=== PATIENT | male | born 1960 | race Caucasian/White ===

== ENCOUNTER 2019-09-28 13:42 | Outpatient (RCR) | payer OTHER, SELFPAY ==
[2019-09-28 14:26] LABS: INR 2.1; Prothrombin Time 22.9 Seconds (11.1-14.7)
== END 2019-12-27 23:59 | disposition home or self-care (01) ==
LOC: ANHLAB 13:42
PROVIDERS: PCP Family Medicine; Visit Provider Family Medicine
DX: D68.61 Antiphospholipid syndrome (principal); Z79.01 Long term (current) use of anticoagulants
CPT/HCPCS: 36415; 85610

== ENCOUNTER 2019-10-15 11:31 | Outpatient (CLI) | payer OTHER, SELFPAY ==
[2019-10-15 12:20] LABS: Total Protein Urine Random 14 mg/dL
[2019-10-15 12:28] LABS: Albumin Level 4.3 g/dL (3.5-5.1); Blood Urea Nitrogen 12 mg/dL (9-20); Calcium 8.9 mg/dL (8.4-10.2); Carbon Dioxide 24 mmol/L (22-30); Chloride 100 mmol/L (98-107); Estimated Glomerular Filt Rate > 60; Glucose 106 mg/dL (75-110); Phosphorus 2.2 mg/dL (2.5-4.5); Sodium 135 mmol/L (137-145)
[2019-10-15 12:31] LABS: Erythrocyte Sedimentation Rate 1 mm/hr (0-20)
[2019-10-15 12:38] LABS: Complement C3 95 mg/dL (88-165)
[2019-10-18 12:53] LABS: Complement Total CH50 >60 U/mL (31-60)
[2019-10-22 14:07] LABS: Anti Nuclear Antibody Pattern Nuclear, Speckled
== END 2019-10-15 11:32 | disposition home or self-care (01) ==
LOC: ANHLAB 11:33
PROVIDERS: PCP Family Medicine; Visit Provider Internal Medicine Nephrology
DX: M32.14 Glomerular disease in systemic lupus erythematosus (principal); I10 Essential (primary) hypertension
CPT/HCPCS: 36415; 80069; 82570; 84156; 85652; 86038; 86039; 86160; 86162

== ENCOUNTER 2019-11-22 14:59 | Emergency (ER) | payer OTHER, SELFPAY ==
--- NOTE | ~2019-11-22 | XR_ITS ---
XR elbow LT min 3V 11/22/2019 17:42 INDICATION: Pain in the lateral aspect of the elbow for 1-2 weeks PROCEDURE: 4 views left elbow COMPARISON: No prior studies for comparison. FINDINGS: Fracture, dislocation or subluxation is not identified. There is a supracondylar process wh ich is a normal variant. The soft tissues appear within normal limits. No foreign bodies are identif ied. No significant joint effusion. IMPRESSION: 1: NO ACUTE BONE OR JOINT ABNORMALITY IDENTIFIED. Reviewed, dictated and finalized at location A.
[2019-11-22 15:04] VITALS: BP 144/85; PULSE 69; RESP 16; TEMP 36.6; O2SAT 97
--- NOTE | 2019-11-22 15:15 | ECG_ITS ---
Measurements Intervals [place] Rate: 73 P: -14 AR: 206 QRS: -4 QRSD: 93 T: 38 QT: 370 QTc: 409 Interpretive Statements SINUS RHYTHM ATRIAL AND VENTRICULAR PREMATURE COMPLEXES INCOMPLETE RIGHT BUNDLE BRANCH BLOCK BORDERLINE ECG Electronically Signed On 11-22-2019 16:53:51 CDT by Cayden Olson D.O.
--- NOTE | 2019-11-22 16:56 | ED.EXTPRO ---
HPI - Extremity Problem General Chief complaint: Extremity Injury, Upper Stated complaint: knot on left arm Time Seen by Provider: 11/22/19 16:53 Source: patient Mode of arrival: ambulatory Limitations: no limitations History of Present Illness HPI Narrative: The pt is a 59 y/o male who presents to the ED c/o left elbow pain onset 3 days ago. The pt notes that he drove for 11-12 hours from [place] to [facility]. He states that the pain started off intermittent, but became more constant as time when on, worsening as well. Pt describes the pain as sharp. He states that the pain radiates down the arm. He reports swelling around the left elbow, dots on the elbow, and left hand numbness. Pt notes that he takes Warfarin. MD Complaint: joint paint (Left elbow) Onset (ago): day(s) (3) Pain Consistency: constant (Initially intermittent) Location: left and elbow Quality: sharp Radiation: distal (Down the arm) Associated symptoms: other (Left elbow swelling, left hand numbness, dots on the left elbow) Context: recent travel (Drove 11-12 hours from [place] to [facility]) Related Data Home Medications Medication Instructions Recorded Confirmed cholecalciferol (vitamin D3) 11/22/19 Allergies Allergy/AdvReac Type Severity Reaction Status Date / Time Sulfa (Sulfonamide Allergy Unknown Unknown Verified 11/22/19 17:26 Antibiotics) Review of Systems Review of Systems: All systems reviewed & are unremarkable except as noted in HPI and below Musculoskeletal: Musculoskeletal: Reports arthralgias (Left elbow, sharp, constant now) and Reports joint swelling (Left elbow) Integumentary/Breasts: Skin/Breast: Reports other ( Dots on the left elbow) Neurologic: Reports numbness (Left hand) [facility] Past Medical History Medical History (Updated 11/22/19 @ 18:41 by Bryan Campuzano MD) Antiphospholipid antibody with hypercoagulable state HLD (hyperlipidemia) Hypertension Kidney disease Lupus Stroke 2009 TIA (transient ischemic attack) 2012 Warfarin anticoagulation Surgical History Surgical History (Updated 11/22/19 @ 16:59 by Edgardo Higgins) Surgical history unknown Family History Family History (Updated 09/28/19 @ 11:59 by Karin Costa MA) Other Heart disease Hyperlipidemia Hypertension Social History Social History (Updated 01/17/20 @ 12:00 by DIEGO Walters Smoking status: Never smoker Alcohol intake: current Drinks per week: 6 Substance use: never Comments PCP: Dr. Perez Exam Narrative: Exam Narrative: General appearance: Well-developed, well-nourished Skin: Normal color Head: Normocephalic, nontraumatic Eyes: Clear conjunctiva ENT: Oropharynx normal, ears normal, nose normal Neck: Supple, nontender Chest and respiratory: Airway patent, no respiratory distress, no accessory muscle use Heart: Regular rate/rhythm Abdomen: Soft, nontender, no organomegaly, quiet bowel sounds Vascular: Normal peripheral pulses, normal capillary refill. Musculoskeletal: Normal range of motion, nontender back, localized tenderness at the proximal left forearm laterally, slightly tender, no bruises, slightly swelling, no rash, good range of motion of left elbow, leg pain get worse with left hand flexion and extension. Neurologic: Alert and oriented ?3, MAPPER is normal as tested, no gross motor deficit Course Course Emergency Course: Improving Vital Signs Vital signs: Vital Signs Temperature 36.6 C 11/22/19 15:04 Pulse Rate 69 11/22/19 15:04 Respiratory Rate 16 11/22/19 15:04 Blood Pressure 144/85 H 11/22/19 15:04 Pulse Oximetry 97 11/22/19 15:04 Temperature 36.3 C L 11/22/19 18:32 Pulse Rate
[2019-11-22 17:20] VITALS: BP 123/80; PULSE 63; RESP 18; TEMP 36.4; O2SAT 98
[2019-11-22] MEDS: IBUPROFEN 600 MG TABLET PO (17:55)
[2019-11-22 18:06] LABS: Basophils Absolute Auto 0.1 K/mm3 (0.0-0.1); Basophils Percent Auto 0.9 % (0.2-1.2); Eosinophils Absolute Auto 0.1 K/mm3 (0-0.3); Eosinophils Percent Auto 1.4 % (0-4.4); Hematocrit 46.4 % (42.0-52.0); Hemoglobin 16.2 g/dL (14.0-18.0); Immature Granulocyte Absolute 0.02 K/mm3 (0.00-0.031); Immature Granulocyte Percent A 0.3 % (0-0.5); Lymphocytes Absolute Auto 1.53 K/mm3 (0.9-3.2); Mean Corpuscular HGB Conc 34.9 g/dl (32-36); Mean Corpuscular Hemoglobin 29.1 pg (26-34); Mean Corpuscular Volume 83.5 fl (80-100); Mean Platelet Volume 9.9 fl (7.4-10.4); Monocytes Absolute Auto 0.8 K/mm3 (0.1-0.6); Monocytes Percent Auto 11.9 % (2.6-8.5); Neutrophils Absolute Auto 4.4 K/mm3 (1.3-6.7); Neutrophils Percent Auto 63.5 % (45.5-73.1); Platelet Count Result 189 k/mm3 (150-375); Red Blood Count 5.56 M/mm3 (4.6-6.20); Red Cell Distribution Width 12.9 % (11.5-14.5)
[2019-11-22 18:22] LABS: Alanine Aminotransferase 30 U/L (4-50); Albumin Level 4.2 g/dL (3.5-5.1); Alkaline Phosphatase 55 U/L (38-126); Aspartate Amino Transferase 30 U/L (17-59); Bilirubin,Total 0.6 mg/dL (0.2-1.3); Blood Urea Nitrogen 13 mg/dL (9-20); Calcium 8.8 mg/dL (8.4-10.2); Carbon Dioxide 24 mmol/L (22-30); Chloride 103 mmol/L (98-107); Estimated CRCL calculation 69 ml/min; Estimated Glomerular Filt Rate > 60; Glucose 97 mg/dL (75-110); Potassium 3.9 mmol/L (3.4-5.0); Sodium 135 mmol/L (137-145)
[2019-11-22 18:22] LABS: INR 2.8; Prothrombin Time 28.8 Seconds (11.1-14.7)
[2019-11-22 18:30] LABS: Erythrocyte Sedimentation Rate 1 mm/hr (0-20)
[2019-11-22 18:32] VITALS: BP 122/92; PULSE 58; RESP 12; TEMP 36.3; O2SAT 98
[2019-11-22] MEDS: predniSONE 20 MG TABLET 60 MG PO (18:58)
== END 2019-11-22 18:55 | disposition home or self-care (01) ==
PROVIDERS: Emergency Provider Emergency Medicine; PCP Family Medicine
DX: M65.9 Synovitis and tenosynovitis, unspecified (principal); M77.9 Enthesopathy, unspecified; E78.5 Hyperlipidemia, unspecified; I10 Essential (primary) hypertension; Z86.73 Personal history of transient ischemic attack (TIA), and cerebral infarction without residual deficits; Z79.01 Long term (current) use of anticoagulants; I49.1 Atrial premature depolarization; I49.3 Ventricular premature depolarization; D68.61 Antiphospholipid syndrome
CPT/HCPCS: 36415; 73080; 80053; 85025; 85610; 85652; 93005; 99283; A4565; A9270; J7512

== ENCOUNTER 2020-01-16 10:03 | Outpatient (CLI) | payer OTHER, SELFPAY ==
[2020-01-16 10:45] LABS: Creatinine Urine 147.5 mg/dL; Total Protein Urine Random 14 mg/dL
[2020-01-16 10:48] LABS: Alanine Aminotransferase 27 U/L (4-50); Albumin Level 4.5 g/dL (3.5-5.1); Alkaline Phosphatase 50 U/L (38-126); Aspartate Amino Transferase 33 U/L (17-59); Bilirubin,Total 0.6 mg/dL (0.2-1.3); Blood Urea Nitrogen 11 mg/dL (9-20); Calcium 9.2 mg/dL (8.4-10.2); Carbon Dioxide 25 mmol/L (22-30); Chloride 104 mmol/L (98-107); Estimated Glomerular Filt Rate > 60; Glucose 101 mg/dL (75-110); Phosphorus 3.5 mg/dL (2.5-4.5); Potassium 4.1 mmol/L (3.4-5.0); Sodium 138 mmol/L (137-145)
[2020-01-16 10:49] LABS: INR 3.4; Prothrombin Time 33.9 Seconds (11.1-14.7)
[2020-01-16 10:55] LABS: Complement C3 99 mg/dL (88-165)
[2020-01-16 11:01] LABS: Erythrocyte Sedimentation Rate 1 mm/hr (0-20)
[2020-01-19 20:03] LABS: Complement Total CH50 >60 U/mL (31-60)
[2020-01-20 17:39] LABS: Anti Nuclear Antibody Pattern Nuclear, Speckled
== END 2020-01-16 10:04 | disposition home or self-care (01) ==
PROVIDERS: PCP Family Medicine; Visit Provider Internal Medicine Nephrology
DX: N18.2 Chronic kidney disease, stage 2 (mild) (principal); R80.9 Proteinuria, unspecified; D68.61 Antiphospholipid syndrome; E78.5 Hyperlipidemia, unspecified
CPT/HCPCS: 36415; 80069; 80076; 82570; 84156; 85610; 85652; 86038; 86039; 86160; 86162; 86225

== ENCOUNTER 2020-10-06 10:59 | Outpatient (CLI) | payer OTHER, SELFPAY ==
[2020-10-06 12:19] LABS: Alanine Aminotransferase 40 U/L (4-50); Albumin Level 4.2 g/dL (3.5-5.1); Anion Gap 7 mmol/L (8-16); Blood Urea Nitrogen 12 mg/dL (9-20); Carbon Dioxide 29 mmol/L (22-30); Chloride 100 mmol/L (98-107); Estimated Glomerular Filt Rate > 60; Glucose 119 mg/dL (75-110); Phosphorus 2.6 mg/dL (2.5-4.5); Potassium 4.3 mmol/L (3.4-5.0); Sodium 136 mmol/L (137-145)
[2020-10-06 12:21] LABS: Alanine Aminotransferase 39 U/L (4-50); Albumin Level 4.3 g/dL (3.5-5.1); Alkaline Phosphatase 55 U/L (38-126); Anion Gap 5 mmol/L (8-16); Aspartate Amino Transferase 39 U/L (17-59); Bilirubin,Total 0.5 mg/dL (0.2-1.3); Blood Urea Nitrogen 13 mg/dL (9-20); Calcium 9.2 mg/dL (8.4-10.2); Carbon Dioxide 28 mmol/L (22-30); Chloride 103 mmol/L (98-107); Cholesterol 104 mg/dL (0-200); Estimated Glomerular Filt Rate > 60; Glucose 122 mg/dL (75-110); HDL Direct 35 mg/dL; Potassium 4.3 mmol/L (3.4-5.0); Sodium 136 mmol/L (137-145); Triglycerides 79 mg/dL (<150)
[2020-10-06 12:33] LABS: LDL Cholesterol Direct 48 mg/dL
[2020-10-06 12:45] LABS: Creatinine Urine 219.7 mg/dL; Total Protein Urine Random 25 mg/dL; Ur Ttl Prot Creatinine Ratio 0.11 mg/mg (0-0.20)
[2020-10-06 12:50] LABS: Prostate Specific Antigen 1.4 ng/mL (< OR = 4.0)
== END 2020-10-06 11:00 | disposition home or self-care (01) ==
PROVIDERS: PCP Family Medicine; Referring Provider Internal Medicine Nephrology; Visit Provider Physician Assistant
DX: Z00.00 Encounter for general adult medical examination without abnormal findings (principal); N18.2 Chronic kidney disease, stage 2 (mild); E78.5 Hyperlipidemia, unspecified; Z12.5 Encounter for screening for malignant neoplasm of prostate
CPT/HCPCS: 36415; 80053; 80061; 80069; 82570; 84153; 84156; 84460; G0103

== ENCOUNTER 2020-10-10 11:43 | Outpatient (RCR) | payer OTHER, SELFPAY ==
[2020-10-10 12:34] LABS: INR 2.6; Prothrombin Time 28.6 Seconds (11.1-14.7)
== END 2021-01-08 23:59 | disposition home or self-care (01) ==
LOC: ANHLAB 11:43
PROVIDERS: PCP Family Medicine; Visit Provider Physician Assistant
DX: D68.61 Antiphospholipid syndrome (principal)
CPT/HCPCS: 36415; 85610

== ENCOUNTER 2021-03-09 08:53 | Outpatient (RCR) | payer OTHER, SELFPAY ==
[2021-01-14 14:46] LABS: Prothrombin Time 23.1 Seconds (11.1-14.7)
[2021-03-09 09:12] LABS: INR 2.2; Prothrombin Time 25.2 Seconds (11.1-14.7)
== END 2021-04-14 23:59 | disposition home or self-care (01) ==
LOC: ANHLAB 08:53
PROVIDERS: PCP Family Medicine; Visit Provider Physician Assistant
DX: D68.61 Antiphospholipid syndrome (principal)
CPT/HCPCS: 36415; 85610

== ENCOUNTER 2021-03-10 11:53 | Observation (INO) | payer OTHER, SELFPAY ==
[2021-03-10] VITALS (7 sets, daily range): BP systolic 124–138; BP diastolic 78–96; PULSE 54–67; RESP 14–18; TEMP 36–36.7; O2SAT 96–99; BMI 28.3
--- NOTE | ~2021-03-10 | MR_ITS ---
EXAMINATION: MR brain/brain stem wo/w con DATE: 03/11/2021 10:31 INDICATION: Right hemiparesis. TECHNIQUE: Magnetic resonance imaging (MRI) of the brain and brainstem was performed without and with 19 mL MultiHance intravenous contrast. Sequences included sagittal and axial T1-weighted FSE, axial diffusion-weighted FS EPI, axial T2*-weighted GRE, axial T2-weighted FLAIR Propeller, and axial T2-we ighted Propeller. Postcontrast sequences included axial and coronal T1-weighted FSE. Apparent diffusi on coefficient (ADC) maps were created. COMPARISON: Head CT 03/10/2021 FINDINGS: There are old infarcts in the cerebellum on the right. There is no intracranial hemorrhage, acute infarction, or abnormal intracranial mass lesion. The ventricles are normal in size. The orbit s are normal. The paranasal sinuses are clear. The mastoid air cells are normal. IMPRESSION: 1. Old infarcts in the cerebellum on the right. Reviewed, dictated and finalized at location A.
--- NOTE | ~2021-03-10 | CT_ITS ---
EXAMINATION: CTA brain carotid DATE: 03/10/2021 13:41 INDICATION: Right hemiparesis. TECHNIQUE: Computed tomographic angiography (CTA) of the head was performed without and with 100 mL O mnipaque-350 intravenous contrast. CTA of the neck was performed with intravenous contrast. Automated exposure control and iterative reconstruction technique were employed. The dose-length product was 1 893.63 mGy-cm. Maximum intensity projection and volume rendered 3D-reconstructions were created by josé fagan technologist on a separate workstation. COMPARISON: None. FINDINGS: HEAD CTA: There is no intracranial hemorrhage, acute infarction, or abnormal intracranial mass lesion . The ventricles are normal in size. The paranasal sinuses are clear. The mastoid air cells are melissa l. The orbits are normal. The vertebral arteries are codominant. There is no significant stenosis of basilar artery. Left P1 posterior cerebral artery segment is small, a normal variant. The posterior c ommunicating arteries are normal. There is no significant stenosis of the intracranial internal carot id arteries or anterior or middle cerebral arteries. Anterior communicating artery is normal. No aneu rysm. NECK CTA: There are no pathologically enlarged lymph nodes. There is no significant stenosis of the v ertebral arteries. There is no visible plaque in the proximal internal carotid arteries. There is 0% stenosis of the proximal right internal carotid artery relative to normal distal artery lumen diamete r (NASCET criteria). There is 0% stenosis of the proximal left internal carotid artery relative to no rmal distal artery lumen diameter. There is moderate cervical spondylosis. IMPRESSION: 1. Normal brain. No aneurysm or significant intracranial arterial stenosis. 2. 0% stenosis of the proximal internal carotid arteries relative to normal distal artery lumen diame ters (NASCET criteria). Reviewed, dictated and finalized at location A. IMPRESSION: 1. Normal brain. No aneurysm or significant intracranial arterial stenosis. 2. 0% stenosis of the proximal internal carotid arteries relative to normal [place] artery lumen diameters (NASCET criteria).
--- NOTE | ~2021-03-10 | XR_ITS ---
EXAMINATION: XR chest 1V portable INDICATION: Right-sided weakness TECHNIQUE: Portable AP chest at 1220 hours COMPARISON: None available FINDINGS: The lungs are free of acute opacities. There is no pleural effusion or pneumothorax. The ca rdiomediastinal silhouette is normal. The visualized bones and soft tissues are unremarkable. IMPRESSION: 1. No acute cardiopulmonary abnormality. Reviewed, dictated and finalized at location B.
--- NOTE | 2021-03-10 12:02 | ECG_ITS ---
Measurements Intervals [place] Rate: 56 P: 40 [place]: 182 QRS: -5 QRSD: 89 T: 29 QT: 391 QTc: 379 Interpretive Statements SINUS BRADYCARDIA INCOMPLETE RIGHT BUNDLE BRANCH BLOCK BORDERLINE ECG Electronically Signed On 03-10-2021 13:11:10 CDT by Cayden Olson D.O.
[2021-03-10 12:24] LABS: Basophils Percent Auto 0.5 % (0.2-1.2); Eosinophils Percent Auto 0.5 % (0-4.4); Hematocrit 44.4 % (42.0-52.0); Hemoglobin 15.7 g/dL (14.0-18.0); Immature Granulocyte Absolute 0.01 K/mm3 (0.00-0.031); Immature Granulocyte Percent A 0.1 % (0-0.5); Lymphocytes Absolute Auto 0.76 K/mm3 (0.9-3.2); Lymphocytes Percent Auto 9.1 % (18.3-44.2); Mean Corpuscular HGB Conc 35.4 g/dl (32-36); Mean Corpuscular Hemoglobin 30.4 pg (26-34); Mean Corpuscular Volume 85.9 fl (80-100); Mean Platelet Volume 10.2 fl (7.4-10.4); Monocytes Absolute Auto 0.5 K/mm3 (0.1-0.6); Monocytes Percent Auto 6.3 % (2.6-8.5); Neutrophils Absolute Auto 6.9 K/mm3 (1.3-6.7); Neutrophils Percent Auto 83.5 % (45.5-73.1); Platelet Count Result 225 k/mm3 (150-375); Red Blood Count 5.17 M/mm3 (4.6-6.20); Red Cell Distribution Width 12.8 % (11.5-14.5); White Blood Count 8.3 K/mm3 (4.5-10.0)
--- NOTE | 2021-03-10 12:25 | ED.NEUROSD ---
HPI - Neuro Symptoms/Deficit General Chief Complaint: Neuro Symptoms/Deficit Stated Complaint: neuro symptoms Time Seen by Provider: 03/10/21 12:07 Source: patient Mode of arrival: ambulatory Limitations: no limitations History of Present Illness HPI Narrative: This is a 60 year old male with history of Lupus, CVA , chronic anticoagulation who presents for evaluation of right side weakness. Patient states 3 days ago he notes right side headache. He denies having headache currently but he states this headache is intermittent. He also reports right side of his head, right arm and right leg are numb and tingling. He has also having right arm and right leg weakness that has been present since Tuesday. He reports he was able to walk into ER. He reports he was thinking he was having a TIA so he did not come to hospital on Tuesday. His symptoms persisted so he was seen by his PCP today and referred to ER. He also reports right eye blurred vision. He denies speech difficulty, chest pain or sob. He states he had a stroke years ago in which he had similar symptoms but they resolved. HE states he has a TIA with similar symptoms at least once a year. He takes warfarin. Related Data Home Medications Medication Instructions Recorded Confirmed cholecalciferol (vitamin D3) 11/22/19 07/01/20 hydroxychloroquine 200 mg PO DAILY 03/10/21 03/10/21 pantoprazole 40 mg PO QPM 03/10/21 03/10/21 pravastatin 20 mg PO QPM 03/10/21 03/10/21 spironolactone 50 mg PO QPM 03/10/21 03/10/21 warfarin 4 mg PO QPM 03/10/21 03/10/21 Allergies Allergy/AdvReac Type Severity Reaction Status Date / Time azathioprine Allergy Severe Itching Verified 03/10/21 17:23 Sulfa (Sulfonamide Allergy Unknown Redness of Verified 03/10/21 17:23 Antibiotics) Skin Review of Systems Review of Systems: All systems reviewed & are unremarkable except as noted in HPI and below Constitutional: Constitutional: Denies chills and Denies fever(s) Eyes: Eyes: Reports change in vision Cardiovascular: Cardiovascular: Denies chest pain Respiratory: Respiratory: Denies cough and Denies dyspnea Gastrointestinal: Gastrointestinal: Denies abdominal pain Neurologic: Reports headache(s), Reports focal weakness and Reports numbness PMFSH Past Medical History Medical History Antiphospholipid antibody with hypercoagulable state Colon cancer screening (~2019) cologuard was negative HLD (hyperlipidemia) Hypertension Kidney disease Lupus Lupus nephritis Stroke 2009 TIA (transient ischemic attack) 2012 Warfarin anticoagulation Surgical History Surgical History Surgical history unknown Family History Family History Other Heart disease Hyperlipidemia Hypertension Social History Social History Smoking status: Never smoker Alcohol intake: former Drinks per week: 10 Substance use: former Substance use type: painkillers Other substance usage details: painkillers for chronic arthritis previously Gender identity (if verbalized by the patient): Male Spiritual care concerns: No Exam Const: General: no acute distress and alert Orientation/consciousness: patient oriented x3 HENMT: Head: normocephalic and atraumatic Face and sinus: face symmetric Mouth: Yes Normal oral and palatal mucosa present, Yes lip normal, Yes oropharynx normal and Yes moist mucous membranes Eyes: Pupils: Equal, round and reactive pupils present EOM: EOMs intact bilaterally Resp: Effort & Inspection: normal respiratory effort and no retractions Auscultation: clear to auscultation bilaterally GI: GI Palp: Yes Soft to palpation, No Tenderness to palpation present (GI) and No Guarding due to palpation present (GI) Auscultation: normal bowel sound
[2021-03-10 12:34] LABS: Anion Gap 10 mmol/L (8-16); Blood Urea Nitrogen 13 mg/dL (9-20); Calcium 9.4 mg/dL (8.4-10.2); Carbon Dioxide 22 mmol/L (22-30); Chloride 107 mmol/L (98-107); Estimated CRCL calculation 84 ml/min; Estimated Glomerular Filt Rate > 60; Glucose 110 mg/dL (75-110); Potassium 4.1 mmol/L (3.4-5.0); Sodium 139 mmol/L (137-145)
[2021-03-10 12:47] LABS: Troponin I < 0.012 ng/mL (0.000-0.034)
[2021-03-10 13:10] LABS: INR 2.2; Partial Thromboplastin Time 34.1 SECONDS (22.3-36.8); Prothrombin Time 25.2 Seconds (11.1-14.7)
[2021-03-10] MEDS: ACETAMINOPHEN 325 MG TABLET 650 MG PO (21:21)
[2021-03-10] MEDS: WARFARIN (*PBKC) 4 MG TABLET PO (23:18)
[2021-03-10] MEDS: PANTOPRAZOLE 40 MG TABLET PO (23:18)
[2021-03-10] MEDS: PRAVASTATIN SODIUM 20 MG TABLET PO (23:18)
[2021-03-10] MEDS: SPIRONOLACTONE 50 MG TABLET PO (23:18)
[2021-03-11] VITALS: PULSE 51
[2021-03-11 04:00] VITALS: PULSE 51
[2021-03-11 06:13] LABS: INR 2.1; Prothrombin Time 23.8 Seconds (11.1-14.7)
--- NOTE | 2021-03-11 06:23 | PM.IMHP ---
H&P: HPI History of Present Illness Date/Time: 03/11/21 06:23 Chief Complaint: Right-sided weakness Narrative: 60-year-old male with past medical history of antiphospholipid syndrome, hypertension and GERD who presented to the ER from physician's office due due to right-sided numbness and right-sided weakness since Tuesday. The patient reports that his symptoms usually resolved after 3-4 hours of symptoms so initially was not concerned. When his symptoms persisted he went to his primary care physician's office who recommended they go to the ER as he could not lift his hand or leg from the bed without significant effort. He had decreased casino runner strength. He reported numbness and heaviness of the Right-sided extremities. He has some facial paresthesias without facial deficit or speech deficit. He denies any difficulty swallowing. It was my impression that the patient symptoms had resolved in the ER. Instead he reports that his symptoms had been stable for 3 days. The patient was quite upset as he thought the ER physician had told me that his symptoms had resolved. I told him that I had gotten that information through she the a change of communication in [place]ONALD venous taken. Despite trying this clarification with the patient he was still quite upset. Given that his symptoms were resolved the patient asked if he should even stay for an MRI. I told him it would not hurt to have an MRI to evaluate if he had a through CVA. However we would not change his medical management at this time as he is therapeutic on his Coumadin. Neurology was consulted from the ER. I encouraged the patient to stay for evaluation by PT and OT and MRI. the patient reports that he did have some vision changes in his right eye with some blurred vision but the symptoms have now resolved. Review of Systems Review of Systems: Narrative: 12 systems were reviewed with pertinent positives and negatives per HPI. Except as documented in the HPI, all other systems were reviewed and are negative. [facility] Past Medical History Medical History Antiphospholipid antibody with hypercoagulable state Colon cancer screening (~2019) cologuard was negative HLD (hyperlipidemia) Hypertension Kidney disease Lupus Lupus nephritis Stroke 2008 TIA (transient ischemic attack) 2012 Warfarin anticoagulation Surgical History Surgical History (Updated 03/11/21 @ 08:42 by Hillary Varma DO) No pertinent past surgical history Family History Family History Other Heart disease Hyperlipidemia Hypertension Social History Social History Smoking status: Never smoker Alcohol intake: former Drinks per week: 10 Substance use: former Substance use type: painkillers Other substance usage details: painkillers for chronic arthritis previously Gender identity (if verbalized by the patient): Male Spiritual care concerns: No Meds Home Medications and Allergies Home Medications Medication Instructions Recorded Confirmed Type cholecalciferol (vitamin D3) 11/22/19 07/01/20 History losartan 100 mg tablet 100 mg PO DAILY #30 tablet 09/29/20 03/10/21 Rx prednisone 5 mg tablet 5 mg PO DAILY #30 tablet 09/29/20 03/10/21 Rx hydroxychloroquine 200 mg PO DAILY 03/10/21 03/10/21 History pantoprazole 40 mg PO QPM 03/10/21 03/10/21 History pravastatin 20 mg PO QPM 03/10/21 03/10/21 History spironolactone 50 mg PO QPM 03/10/21 03/10/21 History warfarin 4 mg PO QPM 03/10/21 03/10/21 History Allergies Allergy/AdvReac Type Severity Reaction Status Date / Time azathioprine Allergy Severe Itching Verified 03/10/21 17:23 Sulfa (Sulfonamide Allergy Unknown Redness of Verified 03/10/21 17:23 Antibiotics) Skin Vital Signs Vital Signs - 24 hr 03/10/21 12:00 03/10/21 12:27 03/10/21 12:30 Temperature 98.0 F
[2021-03-11 08:00] VITALS: PULSE 56
[2021-03-11] MEDS: LOSARTAN POTASSIUM 100 MG TABLET PO (08:19)
[2021-03-11] MEDS: HYDROXYCHLOROQUINE SULFATE 200 MG TABLET PO (08:19)
[2021-03-11] MEDS: predniSONE 5 MG TABLET PO (08:19)
[2021-03-11] MEDS: ACETAMINOPHEN 325 MG TABLET 650 MG PO (08:24)
--- NOTE | 2021-03-11 09:37 | PM.IMPN ---
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 His symptoms have now resolved. Will still obtain MRI of brain and brainstem a.m. have PT and OT evaluate the patient for residual deficits. Neurology has been consulted from the ER. The patient is on chronic anticoagulation due to antiphospholipid syndrome. His INR is therapeutic. He reports that his INR has been therapeutic for several years without needing change in Coumadin dosing. Patient has been admitted as observation status. Subjective Date/time seen: 03/11/21 09:37 Patient was seen during the morning rounds today. Patient weakness has almost resolved. Patient feeling much better. No shortness of breath or chest pain. No abdominal pain, no nausea, no vomiting. Able to walk and swallow. Mood stable. Review of Systems Review of Systems: All systems reviewed & are unremarkable except as noted in HPI and below ( the history and physical examination.) Exam Narrative: Exam Narrative: PHYSICAL EXAM: WEIGHT 97.4 kg BMI 28.3 General: no acute distress, well-developed well-nourished HEENT: mucous membranes are moist, no oral pharyngeal erythema, good dentition, pupils are equal and reactive, head is normocephalic atraumatic, no carotid bruits Respiratory: clear to auscultation bilaterally, no increased work of breathing Cardiovascular: mild bradycardia, regular rhythm, 2+ pulses, no murmurs Gastrointestinal: soft, nontender, nondistended, positive bowel sounds Skin: non jaundice, no pallor Musculoskeletal: no clubbing, cyanosis or edema Neurological: alert and oriented, speech is clear, no facial asymmetry, cranial nerves 2-12 grossly intact, 5/5 mail clerk strength bilaterally, no pronator drift of upper or lower extremity, sensation grossly intact 5/5 plantar flexion 5/5 dorsiflexion Psychiatric: appropriate affect, patient is obviously upset, cooperative with exam : deferred Hematologic/lymphatic: no anterior cervical or submandibular lymphadenopathy, no petechiae, no bruising Objective Data Vital Signs Vital Signs: Vital Signs - 24 hr 03/10/21 12:00 03/10/21 12:27 03/10/21 12:30 Temperature 36.7 C Pulse Rate 67 59 L 63 Respiratory Rate 18 16 14 Blood Pressure 138/96 H Pulse Oximetry 98 96 97 03/10/21 12:32 03/10/21 13:00 03/10/21 20:00 Temperature Pulse Rate 67 64 54 L Respiratory Rate 18 17 Blood Pressure 131/82 Pulse Oximetry 98 96 03/10/21 20:55 03/11/21 00:00 03/11/21 04:00 Temperature 36.0 C L Pulse Rate 60 51 L 51 L Respiratory Rate 18 Blood Pressure 124/78 Pulse Oximetry 99 Intake/Output Intake/Output: Intake & Output 03/08/21 03/09/21 03/10/21 03/11/21 23:59 23:59 23:59 23:59 Intake Total 240 Output Total 0 900 Balance 240 -900 Meds/Results Medications: Active Medications Generic Name Dose Route Start Last Admin Trade Name Freq PRN Reason Stop Dose Admin Acetaminophen 650 mg 03/10/21 20:32 03/11/21 08:24 Acetaminophen 325 Mg Tablet PO 650 mg Q6H PRN Administration Mild Pain (1-3) or Fever Hydroxychloroquine Sulfate 200 mg 03/11/21 09:00 03/11/21 08:19 Hydroxychloroquine Sulfate 200 Mg Tablet PO 200 mg DAILY JOSE MANUEL Administration Losartan Potassium 100
[2021-03-11 10:59] VITALS: O2SAT 96
--- NOTE | 2021-03-11 11:39 | WPDNEURCNPN ---
Assessment and Plan Additional Plan Documented case of antiphospholipid antibody syndrome with history of lupus as well and intermittent history of TIA like symptomatology which patient is quite aware, MRI documented old infarct in the right cerebellum and head and neck CTA documented 0% stenosis of the proximal internal carotid arteries relative to normal distantly lumen patient is receiving all the appropriate medication will be continued as such and INR has been documented as 2.1 the [place] of therapeutic range. The pros and cons were discussed with the patient he can be discharged and follow up with a physician on a regular basis Consult date: 03/11/21 Time Seen: 11:15 HPI: Mikal Saez is a 60 year old maleHas [facility] through [facility] room for the complaints of right-sided weakness. In addition to the history of underlying 1. Antiphospholipid syndrome diagnosed about 12 years ago for which he is on anticoagulation therapy2 [id number]. As per the information available he presented to emergency room from the physician's office due to right-sided numbness and the right-sided weakness since Tuesday he reported that usually his symptomatology resolved after 3 to 4 hours so initially she he was not concerned when the symptoms persisted for longer duration he called his primary care physician who recommended him to go to the emergency room at that time he was unable to lift his hand or leg from the bed without significant effort and also had decreased instructor physical strength he complained of numbness and heaviness with right-sided upper and lower extremities facial paresthesia without any obvious facial deficit or speech deficit and also no difficulties in swallowing patient had been on anticoagulation therapy MRI was recommended. The past history is consistent with as mentioned above antiphospholipid antibody with hypercoagulable state syndrome in addition to hyperlipidemia hypertension lupus with lupus nephritis and history of stroke in 2008 for which he is on anticoagulation therapy on a regular basis he does have a history of renal disease as well, he is a former alcohol drinker 10 drinks per week but not substance user at this time and he has never a smoker Review of Systems Review of Systems: All systems reviewed & are unremarkable except as noted in HPI and below [facility] Past Medical History Medical History Antiphospholipid antibody with hypercoagulable state Colon cancer screening (~2019) cologuard was negative HLD (hyperlipidemia) Hypertension Kidney disease Lupus Lupus nephritis Stroke 2008 TIA (transient ischemic attack) 2011 Warfarin anticoagulation Surgical History Surgical History No pertinent past surgical history Family History Family History Other Heart disease Hyperlipidemia Hypertension Social History Social History Smoking status: Never smoker Alcohol intake: former Drinks per week: 10 Substance use: former Substance use type: painkillers Other substance usage details: painkillers for chronic arthritis previously Gender identity (if verbalized by the patient): Male Spiritual care concerns: No Meds Home Medications and Allergies Home Medications Medication Instructions Recorded Confirmed Type cholecalciferol (vitamin D3) 11/22/19 07/01/20 History losartan 100 mg tablet 100 mg PO DAILY #30 tablet 09/29/20 03/10/21 Rx prednisone 5 mg tablet 5 mg PO DAILY #30 tablet 09/29/20 03/10/21 Rx hydroxychloroquine 200 mg PO DAILY 03/10/21 03/10/21 History pantoprazole 40 mg PO QPM 03/10/21 03/10/21 History pravastatin 20 mg PO QPM 03/10/21 03/10/21 History spironolactone 50 mg PO QPM 03/10/21 03/10/21 History warfarin 4 mg PO QPM 03/10/21 03/10/21 Histo
[2021-03-11 12:00] VITALS: PULSE 59
--- NOTE | 2021-03-11 13:53 | PM.DS ---
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 Patient will complains stay in the hospital was negative. Pain neurology saw the patient recommended to continue medical management. Patient physical examination was completely normal present time. Will discharge the patient home follow-up scheduled outpatient neurology and primary care physician. Status at Discharge Cognitive/behavioral status at discharge: stable Functional status at discharge: independent ambulation Overall status at discharge: patient is back to baseline Time Spent with Patient Time attestation: Total time spent providing and/or coordinating discharge services: Time spent: Less than 30 minutes Exam Narrative: Exam Narrative: PHYSICAL EXAM: WEIGHT 97.4 kg BMI 28.3 General: no acute distress, well-developed well-nourished HEENT: mucous membranes are moist, no oral pharyngeal erythema, good dentition, pupils are equal and reactive, head is normocephalic atraumatic, no carotid bruits Respiratory: clear to auscultation bilaterally, no increased work of breathing Cardiovascular: mild bradycardia, regular rhythm, 2+ pulses, no murmurs Gastrointestinal: soft, nontender, nondistended, positive bowel sounds Skin: non jaundice, no pallor Musculoskeletal: no clubbing, cyanosis or edema Neurological: alert and oriented, speech is clear, no facial asymmetry, cranial nerves 2-12 grossly intact, 5/5 land degradation analyst strength bilaterally, no pronator drift of upper or lower extremity, sensation grossly intact 5/5 plantar flexion 5/5 dorsiflexion Psychiatric: appropriate affect, patient is obviously upset, cooperative with exam : deferred Hematologic/lymphatic: no anterior cervical or submandibular lymphadenopathy, no petechiae, no bruising DS: Data Data Completed and Pending Labs on day of discharge: Labs from last 24 hours 03/11/21 05:51 PT 23.8 H INR 2.1 Discharge Plan Discharge Attending physician on discharge: Ramos Markham Consulting providers: Jasvir Ramsey Discharging Clinician: Ramos Markham Patient Disposition: Home, Self-Care Activity: as tolerated Diet: heart healthy Patient Instructions: Antibiotic Form Stand Alone Forms: General Discharge Information Follow-up/Referrals: Demetra Perez MD [Primary Care Provider] - Jasvir Ramsey MD [Physician] - Discharge Medications: Continued losartan 100 mg tablet 100 mg PO DAILY Qty: 30 RF: 5 prednisone 5 mg tablet 5 mg PO DAILY Qty: 30 RF: 6 cholecalciferol (vitamin D3) RF: 0 hydroxychloroquine 200 mg tablet 200 mg PO DAILY RF: 0 warfarin 4 mg tablet 4 mg PO QPM RF: 0 pantoprazole 40 mg tablet,delayed release (DR/EC) 40 mg PO QPM RF: 0 pravastatin 20 mg tablet 20 mg PO QPM RF: 0 spironolactone 50 mg tablet 50 mg PO QPM RF: 0 Date of admission: 03/10/21 14:17 Primary Care Provider: Demetra Perez Admitting Provider: Magen Read Attending physician on admission: Magen Read Condition: Stable Quality VTE Prophylaxis VTE prophylaxis: pharmacologic ordered (on coumadin. INR threrap
== END 2021-03-11 15:00 | disposition home or self-care (01) ==
LOC: ANHED 12:37 → ANH3MED 20:20
PROVIDERS: Internal Medicine; Admitting Provider Internal Medicine; Emergency Provider General Practice; PCP Family Medicine; Visit Provider Internal Medicine
DX: G81.91 Hemiplegia, unspecified affecting right dominant side (principal); D68.61 Antiphospholipid syndrome; I10 Essential (primary) hypertension; K21.9 Gastro-esophageal reflux disease without esophagitis; Z79.01 Long term (current) use of anticoagulants; Z86.73 Personal history of transient ischemic attack (TIA), and cerebral infarction without residual deficits
CPT/HCPCS: 36415; 70496; 70498; 70553; 71045; 80048; 84484; 85025; 85610; 85730; 93005; 99285; A9270; A9577; G0378; J7512; Q9967

== ENCOUNTER 2021-04-01 13:41 | Outpatient (CLI) | payer OTHER, SELFPAY ==
--- NOTE | 2021-04-01 14:02 | ECHO_ITS ---
Patient Info Name: Mikal Saez Age: 60 years : 1960 Gender: Male Ht: 72 in Wt: 185 lbs BSA: 2.07 m2 HR: 61 bpm BP: 132 / 74 mmHg Technical Quality: Good Exam Date: 04/01/2021 2:09 PM Exam Location: [facility] Patient Status: Outpatient Admit Date: 04/01/2021 Staff Ordering Physician: Demetra Perez MD Railroad Switchman: Vee Maynard RDCS Attending Provider: Demetra Perez MD Referring Physician: Chris SKY; Exam Type: CA echo doppler color flow Study Info Indications - cerebral infarction Complete two-dimensional, color flow and Doppler transthoracic echocardiogram is performed. Summary 1. Complete two-dimensional, color flow and Doppler transthoracic echocardiogram is performed. 2. Left ventricular chamber dimension is normal. 3. Left ventricular systolic function is normal, estimated at 60-65%. 4. There is mildly increased left ventricular wall thickness. 5. The left ventricular diastolic function is grade I diastolic dysfunction. 6. E/e' 5 is not elevated. 7. There is trace tricuspid valve regurgitation. 8. No pulmonary hypertension, estimated pulmonary arterial systolic pressure is 25 mmHg. Left Ventricle E/e' 5 is not elevated. Left ventricular chamber dimension is normal. Left ventricular systolic function is normal, estimated at 60-65%. There is mildly increased left ventricular wall thickness. The left ventricular diastolic function is grade I diastolic dysfunction. Right Ventricle Right ventricular chamber dimension is normal. Right ventricular systolic function is normal. Left Atria Left atrial chamber dimension is normal. Right Atria Right atrial chamber dimension is normal. Aortic Valve The aortic valve is trileaflet. There is no aortic valve stenosis. There is no aortic valve regurgitation. Pulmonic Valve There is no pulmonic regurgitation. Mitral Valve There is no mitral valve stenosis. There is no mitral valve regurgitation. Tricuspid Valve There is trace tricuspid valve regurgitation. No pulmonary hypertension, estimated pulmonary arterial systolic pressure is 25 mmHg. Pericardium/Pleural There is no pericardial effusion. Inferior Vena Cava Normal inferior vena cava with >50% collapse upon inspiration consistent with normal right atrial pressure, 5 mmHg. Aorta The aortic root size at the sinus of Valsalva is normal. Left Ventricular Outflow Tract Name Value Normal LVOT 2D LVOT Diameter 2.1 cm LVOT Doppler LVOT Peak Gradient 5 mmHg LVOT Mean Gradient 3 mmHg LVOT VTI 21 cm LVOT VTI/AV VTI Ratio 0.8 LVOT Stroke Volume 75 ml LVOT CO 17.3 l/min LVOT CI 8.3 l/min/m2 Pulmonic Valve Name Value Normal PV Doppler
== END 2021-04-01 13:42 | disposition home or self-care (01) ==
PROVIDERS: PCP Family Medicine; Visit Provider Family Medicine
DX: I63.9 Cerebral infarction, unspecified (principal)
CPT/HCPCS: 93306

== ENCOUNTER 2021-07-01 08:35 | Outpatient (RCR) | payer OTHER, SELFPAY ==
[2021-05-07 08:31] LABS: INR 2.5; Prothrombin Time 26.7 Seconds (11.1-14.7)
[2021-07-01 09:14] LABS: INR 2.2; Prothrombin Time 23.6 Seconds (11.1-14.7)
== END 2021-08-05 23:59 | disposition home or self-care (01) ==
LOC: ANHLAB 08:35
PROVIDERS: PCP Family Medicine; Visit Provider Family Medicine
DX: D68.61 Antiphospholipid syndrome (principal); M32.9 Systemic lupus erythematosus, unspecified
CPT/HCPCS: 36415; 85610

== ENCOUNTER 2021-08-11 08:53 | Outpatient (CLI) | payer OTHER, SELFPAY ==
[2021-08-11 09:46] LABS: INR 2.8; Prothrombin Time 28.4 Seconds (11.1-14.7)
== END 2021-08-11 08:54 | disposition home or self-care (01) ==
LOC: ANHLAB 08:55
PROVIDERS: PCP Family Medicine; Visit Provider Family Medicine
DX: D68.61 Antiphospholipid syndrome (principal); M32.9 Systemic lupus erythematosus, unspecified
CPT/HCPCS: 36415; 85610

== ENCOUNTER 2021-09-03 09:23 | Outpatient (CLI) | payer OTHER, SELFPAY ==
[2021-09-03 09:44] LABS: Hematocrit 44.8 % (42.0-52.0); Hemoglobin 15.3 g/dL (14.0-18.0); Mean Corpuscular HGB Conc 34.2 g/dl (32-36); Mean Corpuscular Hemoglobin 30.2 pg (26-34); Mean Corpuscular Volume 88.4 fl (80-100); Mean Platelet Volume 9.6 fl (7.4-10.4); Platelet Count Result 206 k/mm3 (150-375); Red Blood Count 5.07 M/mm3 (4.6-6.20); Red Cell Distribution Width 12.9 % (11.5-14.5); White Blood Count 7.2 K/mm3 (4.5-10.0)
[2021-09-03 10:00] LABS: Albumin Level 4.2 g/dL (3.5-5.1); Anion Gap 5 mmol/L (8-16); Blood Urea Nitrogen 13 mg/dL (9-20); Calcium 9.3 mg/dL (8.4-10.2); Carbon Dioxide 31 mmol/L (22-30); Chloride 100 mmol/L (98-107); Estimated Glomerular Filt Rate > 60; Glucose 109 mg/dL (65-110); Phosphorus 2.9 mg/dL (2.5-4.5); Potassium 4.5 mmol/L (3.4-5.0); Sodium 136 mmol/L (137-145)
[2021-09-03 10:09] LABS: Complement C3 96 mg/dL (88-165)
[2021-09-03 10:10] LABS: Erythrocyte Sedimentation Rate 5 mm/hr (0-20)
[2021-09-03 11:11] LABS: Creatinine Urine 130.4 mg/dL; Total Protein Urine Random 7 mg/dL; Ur Ttl Prot Creatinine Ratio 0.05 mg/mg (0-0.20)
[2021-09-03 19:56] LABS: Rubella IgG Antibody > 120.0 IU/ML
[2021-09-08 08:36] LABS: Mumps Virus IgG Antibody <9.00 AU/mL
[2021-09-08 12:25] LABS: Rubeola Measles IgG <13.50 AU/mL
[2021-09-08 15:59] LABS: Complement Total CH50 >60 U/mL (31-60)
== END 2021-09-03 09:24 | disposition home or self-care (01) ==
LOC: ANHLAB 09:25
PROVIDERS: PCP Family Medicine; Referring Provider Internal Medicine Nephrology; Visit Provider Physician Assistant
DX: R94.4 Abnormal results of kidney function studies (principal); Z01.84 Encounter for antibody response examination
CPT/HCPCS: 36415; 80069; 82570; 84156; 85027; 85652; 86160; 86162; 86225; 86735; 86762; 86765

== ENCOUNTER 2021-11-05 08:49 | Outpatient (RCR) | payer OTHER, SELFPAY ==
[2021-10-07 09:26] LABS: INR 2.7; Prothrombin Time 27.6 Seconds (11.1-14.7)
[2021-11-05 09:25] LABS: INR 2.7; Prothrombin Time 27.4 Seconds (11.1-14.7)
== END 2022-01-05 23:59 | disposition home or self-care (01) ==
LOC: ANHLAB 08:49
PROVIDERS: PCP Family Medicine; Visit Provider Family Medicine
DX: D68.61 Antiphospholipid syndrome (principal); M32.9 Systemic lupus erythematosus, unspecified
CPT/HCPCS: 36415; 85610